=== PATIENT | female | born 1985 | race Caucasian/White ===

== ENCOUNTER 2019-06-20 04:39 | Outpatient (CLI) | payer BC | END 2019-06-20 23:59 | disposition home or self-care (01) | LOC: DIABETIC 04:39 | PROVIDERS: ATTEND Internal Medicine Interventional Cardiology | DX: I42.9 Cardiomyopathy, unspecified (principal); R63.4 Abnormal weight loss | CPT/HCPCS: 97802 ==

== ENCOUNTER 2021-01-26 06:31 | Emergency (ER) | payer BC ==
[~2021-01-26] VITALS: Ht 177.8 cm; Wt 106.8 kg
--- NOTE | 2021-01-26 06:59 | NUR ---
pt wanted an echo bc hers was canceled on last wed. Shes on quarantine at home and not allowed to be seen by dr. sellers office until february. Dr. Carter told pt that echo was non emergent she can follow up with Dr. Sellers. They discussed covid vs chf symptoms and tx.
[2021-01-26 08:26] VITALS: BP 105/54
== END 2021-01-26 08:31 | disposition home or self-care (01) ==
LOC: ER 06:32
DX: I44.7 Left bundle-branch block, unspecified (principal); I50.9 Heart failure, unspecified; Z20.822 Contact with and (suspected) exposure to COVID-19
CPT/HCPCS: 36415; 71045; 83880; 99284; U0003; U0005